=== PATIENT | female | born 2000 | race Caucasian/White ===

== ENCOUNTER 2023-04-10 05:44 | Emergency (ER) | payer OTHER, SELFPAY ==
--- NOTE | 2023-04-10 04:57 | XR_ITS ---
The [address] [address] Patient Name: DESTINY FLORES MRN: [id number] date: 2000 Sex: F Assigned Patient Location: Current Patient Location: Accession/Order Number: [id number] Exam Date: 04/10/2023 04:57 Report Date: 04/10/2023 05:37 At the request of: LUCAS PABLO Procedure: XR foot LT min 3V PROCEDURE: XR foot LT min 3V HISTORY: Left foot pain COMPARISON: None. FINDINGS: BONES:No fracture, acute abnormality, or significant arthropathy. SOFT TISSUES:No visible soft tissue swelling. EFFUSION:None visible. OTHER: Negative. IMPRESSION: 1. No acute bone abnormality or appreciable degenerative changes. Electronically authenticated by: DIANNE LE Date: 04/10/2023 05:37
== END 2023-04-10 07:04 | disposition left against medical advice (07) ==
PROVIDERS: Emergency Provider Internal Medicine
DX: S90.122A Contusion of left lesser toe(s) without damage to nail, initial encounter (principal); W20.8XXA Other cause of strike by thrown, projected or falling object, initial encounter
CPT/HCPCS: 73630; 99283